=== PATIENT | female | born 1950 | race Hispanic/Latino ===

== ENCOUNTER → 2017-09-06 | Outpatient (CLI) | payer MEDICARE | END | disposition home or self-care (01) | LOC: SHCH 11:07 | PROVIDERS: ATTEND Internal Medicine Cardiovascular Disease | DX: I25.10 Atherosclerotic heart disease of native coronary artery without angina pectoris (principal) | CPT/HCPCS: 93306 ==

== ENCOUNTER → 2017-09-21 | Outpatient (CLI) | payer MEDICARE | END | disposition home or self-care (01) | LOC: SHCH 09:02 | PROVIDERS: ATTEND Internal Medicine Cardiovascular Disease | DX: I73.9 Peripheral vascular disease, unspecified (principal) | CPT/HCPCS: 93925 ==

== ENCOUNTER 2019-07-16 16:32 | Inpatient (IN) | payer MEDICARE ==
[~2019-07-16] VITALS: Ht 157.5 cm; Wt 72.8 kg
[2019-07-16 16:46] LABS: ABG BASE EXCESS -13.6 mmol/L (-2.0-3.0); ABG HCO3 16.8 mmol/L (21.0-28.0); ABG OXYGEN SATURATION 83.3 % (95.0-99.0); ABG PCO2 58 mmHg (32-45)
[2019-07-16] MEDS ORDERED: NITROGLYCERIN 1GM/1 INCH PACKET TD ONE (16:48)
[2019-07-16 17:11] LABS: CREATININE 1.7 mg/dL (0.5-1.5); POTASSIUM 3.8 mmol/L (3.5-5.1)
[2019-07-16 17:12] LABS: INR 0.88 (0.85-1.15); PARTIAL THROMBOPLASTIN TIME 28.9 SEC (26.3-35.5); PROTHROMBIN TIME 9.5 SEC (9.6-11.6)
[2019-07-16 17:15] LABS: ALBUMIN 3.2 g/dL (3.5-5.0); BASOPHILS % (AUTO) 0.3 % (0.0-5.0); BILIRUBIN,TOTAL 0.6 mg/dL (0.2-1.0); LYMPHOCYTES % (AUTO) 40.1 % (21.0-51.0); MEAN CORPUSCULAR HEMOGLOBIN 29.4 pg (27.0-33.0); MEAN CORPUSCULAR HGB CONC 31.4 g/dL (32.0-36.0); MEAN CORPUSCULAR VOLUME 93.5 fL (79-99); MONOCYTES % (AUTO) 4.3 % (3.0-13.0); NEUTROPHILS % (AUTO) 51.7 % (40.0-77.0); NUCLEATED RED BLOOD CELLS 0.2 % (0.0-0.19); PLATELET COUNT (AUTO) 381 K/uL (130-400); RED BLOOD CELL COUNT(AUTO) 3.85 MIL/uL (4.00-5.50); RED CELL DISTRIBUTION WIDTH 15.4 % (11.0-15.5); TOTAL PROTEIN, SERUM 7.6 g/dL (6.0-8.3); WHITE BLOOD COUNT (AUTO) 17.9 K/uL (4.8-10.8)
[2019-07-16] MEDS ORDERED: ASPIRIN 325 MG TABLET ONE (17:26)
[2019-07-16 17:32] LABS: APPEARANCE,URINE SL CLOUDY (CLEAR); BILIRUBIN,URINE NEGATIVE (NEGATIVE); COLOR,URINE YELLOW (YELLOW); GLUCOSE, URINE (UA) 250 mg/dL (NEGATIVE); KETONES,URINE NEGATIVE (NEGATIVE); LEUKOCYTE ESTERASE ,URINE NEGATIVE (NEGATIVE); NITRATE,URINE NEGATIVE (NEGATIVE); OCCULT BLOOD,URINE SMALL (NEGATIVE); PROTEIN,URINE >=300 mg/dL (NEGATIVE); UROBILINOGEN,URINE 0.2 mg/dL (0.2-1.0)
[2019-07-16 17:42] LABS: BACTERIA,URINE Moderate /HPF (None Seen); MUCUS,URINE Few LPF (None Seen); SQUAMOUS EPITHELIAL CELL,UR Few /HPF (0-2)
[2019-07-16 17:43] LABS: AMORPHOUS SEDIMENT,UR Moderate /LPF (None Seen)
[2019-07-16 17:55] LABS: B-TYPE NATRIURETIC PEPTIDE 1050 pg/mL (0-100)
[2019-07-16] MEDS ORDERED: LEVOFLOXACIN 750 MG/D5W 150 ML 150 ML ONE (18:06)
[2019-07-16] MEDS ORDERED: ACETAMINOPHEN 325 MG TAB PO PRN ×2 (19:00)
[2019-07-16] MEDS: FUROSEMIDE 10 MG/ML 2ML VIAL IV SCH (19:00)
[2019-07-16] MEDS ORDERED: AZITHROMYCIN 500MG+NS 250ML 250 ML IV SCH (19:00)
[2019-07-16] MEDS ORDERED: MORPHINE SULFATE 2 MG/ML 1ML SYG IV PRN (19:00)
[2019-07-16] MEDS ORDERED: ONDANSETRON HCL 4 MG/2 ML VIAL IV PRN (19:00)
[2019-07-16] MEDS ORDERED: HYDRALAZINE HCL 20 MG/ML VIAL IV PRN (19:00)
[2019-07-16] MEDS ORDERED: CEFTRIAXONE SODIUM 1 GM IV SCH (19:00)
[2019-07-16 19:30] LABS: ABG BASE EXCESS -1.3 mmol/L (-2.0-3.0); ABG HCO3 24.6 mmol/L (21.0-28.0); ABG PCO2 46 mmHg (32-45)
[2019-07-16] MEDS ORDERED: AZITHROMYCIN 500MG+NS 250ML 250 ML IV ONE (20:01)
[2019-07-16] MEDS ORDERED: CEFTRIAXONE SODIUM 1 GM ONE (20:02)
[2019-07-16 20:05] LABS: CHOLESTEROL 215 mg/dL (<200); HDL CHOLESTEROL 44 mg/dL (35-85); HEMOGLOBIN A1C 9.3 % (4.0-6.0); LDL DIRECT 134 mg/dL (0-99); TRIGLYCERIDES 331 mg/dL (30-200)
[2019-07-16] MEDS: FAMOTIDINE 20MG TAB 20 MG TAB PO SCH (21:00)
[2019-07-16] MEDS: INSULIN HUMULIN R 100 UNIT/ML 3ML SQ SCH (21:00)
[2019-07-16] MEDS: ATORVASTATIN CALCIUM 20 MG TABLET PO SCH (21:00)
[2019-07-16] MEDS ORDERED: METOPROLOL TARTRATE 25 MG TAB PO SCH (21:00)
[2019-07-16] MEDS ORDERED: ATORVASTATIN CALCIUM 20 MG TABLET ONE (21:39)
[2019-07-16] MEDS ORDERED: FAMOTIDINE/PF 20 MG/2 ML VIAL IV ONE (21:40)
[2019-07-16] MEDS ORDERED: INSULIN HUMULIN R 100 UNIT/ML 3ML ONE (21:41)
[2019-07-17] MEDS: IPRATROPIUM/ALBUTEROL SULFATE 3 ML SOLUTION IH SCH ×5 (00:18→23:20)
[2019-07-17] MEDS ORDERED: SODIUM CHLORIDE 3% FOR INHALATION 4 ML/AMP VIAL.NEB IH ONE ×2 (00:21→06:30)
[2019-07-17] MEDS ORDERED: FUROSEMIDE 10 MG/ML 2ML VIAL ONE ×2 (06:03→08:15)
[2019-07-17] MEDS ORDERED: IPRATROPIUM/ALBUTEROL SULFATE 3 ML SOLUTION IH ONE ×2 (06:20→12:12)
[2019-07-17] MEDS: FUROSEMIDE 10 MG/ML 2ML VIAL IV SCH (07:00)
[2019-07-17 07:04] LABS: BASOPHILS % (AUTO) 0.2 % (0.0-5.0); EOSINOPHILS % (AUTO) 1.3 % (0.0-8.0); HEMATOCRIT 30.4 % (36-48); LYMPHOCYTES % (AUTO) 18.5 % (21.0-51.0); MEAN CORPUSCULAR HEMOGLOBIN 29.2 pg (27.0-33.0); MEAN CORPUSCULAR HGB CONC 32.9 g/dL (32.0-36.0); MEAN CORPUSCULAR VOLUME 88.9 fL (79-99); MONOCYTES % (AUTO) 6.3 % (3.0-13.0); PLATELET COUNT (AUTO) 292 K/uL (130-400); RED BLOOD CELL COUNT(AUTO) 3.42 MIL/uL (4.00-5.50); RED CELL DISTRIBUTION WIDTH 15.4 % (11.0-15.5); WHITE BLOOD COUNT (AUTO) 12.3 K/uL (4.8-10.8)
[2019-07-17 07:14] LABS: CREATININE 1.2 mg/dL (0.5-1.5); POTASSIUM 4.1 mmol/L (3.5-5.1)
[2019-07-17 07:30] LABS: B-TYPE NATRIURETIC PEPTIDE 1020 pg/mL (0-100)
[2019-07-17] MEDS ORDERED: HEPARIN SODIUM 5000UNIT/ML 1ML VIAL SQ PRN (07:30)
[2019-07-17] MEDS: INSULIN HUMULIN R 100 UNIT/ML 3ML SQ SCH ×4 (07:30→22:18)
[2019-07-17] MEDS: NITROGLYCERIN 1GM/1 INCH PACKET TD SCH ×3 (07:30→23:30)
[2019-07-17] MEDS ORDERED: ENOXAPARIN SODIUM 40 MG/0.4 ML SYRINGE SQ ONE (07:41)
[2019-07-17] MEDS ORDERED: NITROGLYCERIN 1GM/1 INCH PACKET TD ONE ×2 (07:42→16:56)
[2019-07-17] MEDS ORDERED: HEPARIN 25000 UNITS/250 ML D5W 250 ML IV ONE (07:50)
[2019-07-17] MEDS ORDERED: HEPARIN SODIUM 5000UNIT/ML 1ML VIAL ONE (08:05)
[2019-07-17] MEDS ORDERED: FAMOTIDINE/PF 20 MG/2 ML VIAL IV ONE (08:16)
[2019-07-17] MEDS ORDERED: ONDANSETRON HCL 4 MG/2 ML VIAL ONE (08:16)
[2019-07-17] MEDS ORDERED: MORPHINE SULFATE 2 MG/ML 1ML SYG ONE (08:16)
[2019-07-17] MEDS: LABETALOL HCL 200 MG TABLET PO SCH ×2 (09:00→22:03)
[2019-07-17] MEDS: LISINOPRIL 20 MG TABLET PO SCH (09:00)
[2019-07-17] MEDS ORDERED: ENOXAPARIN SODIUM 40 MG/0.4 ML SYRINGE SQ SCH (09:00)
[2019-07-17] MEDS: AMLODIPINE BESYLATE 5 MG TAB PO SCH (09:00)
[2019-07-17] MEDS: ASPIRIN 325 MG TABLET PO SCH (09:00)
[2019-07-17] MEDS ORDERED: METOPROLOL TARTRATE 25 MG TAB ONE (09:54)
[2019-07-17] MEDS ORDERED: AMLODIPINE BESYLATE 5 MG TAB ONE (09:54)
[2019-07-17] MEDS ORDERED: LABETALOL HCL 200 MG TABLET ONE (09:54)
[2019-07-17 12:17] LABS: INR 1.05 (0.85-1.15); PROTHROMBIN TIME 11.3 SEC (9.6-11.6)
[2019-07-17 12:24] LABS: PARTIAL THROMBOPLASTIN TIME 115.7 SEC (26.3-35.5)
--- NOTE | 2019-07-17 14:29 | NUR ---
INITIAL SW met with patient. She stated that she lives with daughter, Eli Garcia, [phone]. No home services at this time. DME: [facility] yuen, glucometer (uses insulin). Patient reports she needs help with ADL's and does not drive. Family helps her with transportation to MD appts. PCP is Dr. Kirsten Nicholson. Pharmacy is [facility] in [place]. DCP is home. Addendum: 07/17/19 at 1432 by HARRIETT MALIK SS Amended: Links added.
[2019-07-17 14:51] LABS: INR 1.03 (0.85-1.15); PROTHROMBIN TIME 11.1 SEC (9.6-11.6)
[2019-07-17 15:01] LABS: PARTIAL THROMBOPLASTIN TIME > 120.0 SEC (26.3-35.5)
[2019-07-17 17:10] VITALS: BP 159/52
--- NOTE | 2019-07-17 17:10 | NUR ---
ASSESSMENT RECEIVED PT FROM ER, AWAKE AND ALERT, NO SOB OR LABORED RESPIRATIONS, O2 PER NC, PT ON HEPARIN DRIP. ASSISTED TO BED WITH MINIMAL ASSISTANCE. ORIENTED TO ROOM AND CALL LIGHT, BED IN LOW POSITION, BED RAILS UP X 2. FAMILY AT BEDSIDE
[2019-07-17] MEDS ORDERED: LINA145C PO (17:54)
[2019-07-17] MEDS ORDERED: ATEN100T PO (17:54)
[2019-07-17] MEDS ORDERED: DAPA10TA PO (17:54)
[2019-07-17] MEDS ORDERED: FAMO20TA8 PO (17:54)
[2019-07-17] MEDS ORDERED: FURO20TA4 PO (17:54)
[2019-07-17] MEDS ORDERED: ESCI10TA54 PO (17:54)
[2019-07-17] MEDS ORDERED: GABA-529 PO (17:54)
[2019-07-17] MEDS ORDERED: HYDR10 PO (17:54)
[2019-07-17] MEDS ORDERED: BENZ200C53 PO (17:54)
[2019-07-17] MEDS ORDERED: ATOR40TA69 PO (17:54)
[2019-07-17] MEDS ORDERED: AMLO10TA4 PO (17:54)
[2019-07-17] MEDS ORDERED: CLON0.1T PO (17:54)
[2019-07-17] MEDS ORDERED: CLOP75TA32 PO (17:54)
[2019-07-17] MEDS ORDERED: ENAL20TA PO (17:54)
[2019-07-17 19:26] LABS: ABG BASE EXCESS 3.1 mmol/L (-2.0-3.0); ABG OXYGEN SATURATION 84.2 % (95.0-99.0); ABG PCO2 44 mmHg (32-45)
[2019-07-17 20:00] VITALS: BP 131/47
[2019-07-17] MEDS ORDERED: FUROSEMIDE 10 MG/ML 2ML VIAL IV SCH (21:00)
[2019-07-17] MEDS: FAMOTIDINE 20MG TAB 20 MG TAB PO SCH (21:00)
[2019-07-17] MEDS: CEFTRIAXONE SODIUM 1 GM IV SCH (22:01)
[2019-07-17] MEDS: ATORVASTATIN CALCIUM 20 MG TABLET PO SCH (22:03)
[2019-07-17] MEDS: AZITHROMYCIN 500MG+NS 250ML 250 ML IV SCH (22:04)
[2019-07-17 23:40] VITALS: BP 128/53
[2019-07-18 03:42] LABS: BASOPHILS % (AUTO) 0.2 % (0.0-5.0); EOSINOPHILS % (AUTO) 2.3 % (0.0-8.0); HEMATOCRIT 27.8 % (36-48); LYMPHOCYTES % (AUTO) 14.5 % (21.0-51.0); MEAN CORPUSCULAR HEMOGLOBIN 28.9 pg (27.0-33.0); MEAN CORPUSCULAR HGB CONC 32.7 g/dL (32.0-36.0); MEAN CORPUSCULAR VOLUME 88.3 fL (79-99); MONOCYTES % (AUTO) 7.2 % (3.0-13.0); NEUTROPHILS % (AUTO) 75.3 % (40.0-77.0); PLATELET COUNT (AUTO) 329 K/uL (130-400); RED BLOOD CELL COUNT(AUTO) 3.15 MIL/uL (4.00-5.50); RED CELL DISTRIBUTION WIDTH 15.5 % (11.0-15.5); WHITE BLOOD COUNT (AUTO) 9.9 K/uL (4.8-10.8)
[2019-07-18 03:44] LABS: CREATININE 1.2 mg/dL (0.5-1.5); POTASSIUM 3.6 mmol/L (3.5-5.1)
[2019-07-18 03:54] LABS: ABG BASE EXCESS 5.2 mmol/L (-2.0-3.0); ABG HCO3 29.5 mmol/L (21.0-28.0); ABG OXYGEN SATURATION 99.2 % (95.0-99.0); ABG PCO2 42 mmHg (32-45)
[2019-07-18 04:16] VITALS: BP 131/56
[2019-07-18 04:33] LABS: B-TYPE NATRIURETIC PEPTIDE 653 pg/mL (0-100)
[2019-07-18] MEDS ORDERED: HEPARIN 25000 UNITS/250 ML D5W 250 ML IV ONE (05:10)
[2019-07-18] MEDS: INSULIN HUMULIN R 100 UNIT/ML 3ML SQ SCH ×4 (06:29→22:01)
[2019-07-18] MEDS: NITROGLYCERIN 1GM/1 INCH PACKET TD SCH (06:31)
[2019-07-18] MEDS: IPRATROPIUM/ALBUTEROL SULFATE 3 ML SOLUTION IH SCH ×4 (06:42→23:59)
[2019-07-18 07:00] VITALS: BP 153/58
[2019-07-18] MEDS: ASPIRIN 325 MG TABLET PO SCH (09:00)
[2019-07-18] MEDS ORDERED: ASPIRIN 81MG TAB.CHEW ONE (09:05)
[2019-07-18] MEDS: LISINOPRIL 20 MG TABLET PO SCH (09:10)
[2019-07-18] MEDS: FUROSEMIDE 40 MG TABLET PO SCH ×2 (09:11→17:49)
[2019-07-18] MEDS: LABETALOL HCL 200 MG TABLET PO SCH ×2 (09:11→20:52)
[2019-07-18 11:00] VITALS: BP 150/53
--- NOTE | 2019-07-18 12:00 | NUR ---
DESAT IN FLAT POSITION PT PLACED IN FLAT POSITION, ON HI FLOW O2 40%/30L AND DURING EXPLANATION OF HEART CATH PROCEDURE, PT O2 SATS DECREASED TO 88% AND PT DID FEEL UNCOMFORTABLE. PT REPOSITIONED TO HIGH SCHULZ'S POSITION AND SATS RETURNED TO 94%. FREDDIE SORIA NOTIFIED.
[2019-07-18] MEDS ORDERED: FUROSEMIDE 10 MG/ML 4ML VIAL IV SCH (13:15)
[2019-07-18] MEDS: AMLODIPINE BESYLATE 5 MG TAB PO SCH (13:18)
[2019-07-18] MEDS: ISOSORBIDE MONO 30MG TAB SR PO SCH (13:18)
[2019-07-18 15:00] VITALS: BP 148/56
[2019-07-18 19:33] VITALS: BP 154/65
[2019-07-18] MEDS: ATORVASTATIN CALCIUM 20 MG TABLET PO SCH (20:53)
[2019-07-18] MEDS: RANITIDINE HCL 15 MG/1 ML PO SCH (20:53)
[2019-07-18] MEDS: AZITHROMYCIN 500MG+NS 250ML 250 ML IV SCH (20:53)
[2019-07-18] MEDS: CEFTRIAXONE SODIUM 1 GM IV SCH (20:53)
[2019-07-18 23:48] VITALS: BP 144/59
[2019-07-19 03:43] VITALS: BP 149/63
[2019-07-19] MEDS: IPRATROPIUM/ALBUTEROL SULFATE 3 ML SOLUTION IH SCH ×3 (06:40→18:42)
[2019-07-19] MEDS: INSULIN HUMULIN R 100 UNIT/ML 3ML SQ SCH ×2 (07:30→12:56)
[2019-07-19 07:51] VITALS: BP 189/75
[2019-07-19] MEDS: ASPIRIN 325 MG TABLET PO SCH (09:11)
[2019-07-19] MEDS: AMLODIPINE BESYLATE 5 MG TAB PO SCH (09:11)
[2019-07-19] MEDS: ISOSORBIDE MONO 30MG TAB SR PO SCH (09:12)
[2019-07-19] MEDS: FUROSEMIDE 40 MG TABLET PO SCH ×2 (09:12→17:46)
[2019-07-19] MEDS: LABETALOL HCL 200 MG TABLET PO SCH ×2 (09:12→21:43)
[2019-07-19] MEDS: LISINOPRIL 20 MG TABLET PO SCH (09:14)
[2019-07-19 12:10] VITALS: BP 155/57
[2019-07-19] MEDS: ENOXAPARIN SODIUM 30 MG/0.3 ML SQ SCH (12:54)
[2019-07-19] MEDS ORDERED: HYDROCHLOROTHIAZIDE 25 MG TABLET PO SCH (13:45)
[2019-07-19 15:33] LABS: CREATININE 1.3 mg/dL (0.5-1.5); MAGNESIUM 2.1 mg/dL (1.80-2.40); PHOSPHORUS 3.9 mg/dL (2.5-4.9); POTASSIUM 4.3 mmol/L (3.5-5.1)
[2019-07-19 15:38] LABS: % IRON SATURATION 10.8 % (22-44)
[2019-07-19 15:53] LABS: BASOPHILS % (AUTO) 0.2 % (0.0-5.0); EOSINOPHILS % (AUTO) 4.9 % (0.0-8.0); HEMATOCRIT 27.6 % (36-48); LYMPHOCYTES % (AUTO) 18.6 % (21.0-51.0); MEAN CORPUSCULAR HEMOGLOBIN 29.6 pg (27.0-33.0); MEAN CORPUSCULAR VOLUME 89.9 fL (79-99); MONOCYTES % (AUTO) 6.1 % (3.0-13.0); NEUTROPHILS % (AUTO) 69.4 % (40.0-77.0); PLATELET COUNT (AUTO) 340 K/uL (130-400); RED BLOOD CELL COUNT(AUTO) 3.07 MIL/uL (4.00-5.50); RED CELL DISTRIBUTION WIDTH 15.3 % (11.0-15.5); WHITE BLOOD COUNT (AUTO) 8.7 K/uL (4.8-10.8)
[2019-07-19 16:30] VITALS: BP 169/56
[2019-07-19] MEDS: INSULIN LISPRO 100 UNIT/ML 3ML SQ SCH ×3 (17:47→21:49)
[2019-07-19 18:08] VITALS: BP 147/68
[2019-07-19 19:36] VITALS: BP 160/63
[2019-07-19] MEDS ORDERED: SODIUM CHLORIDE 0.9% 10 ML VIAL ONE (21:38)
[2019-07-19] MEDS: GABAPENTIN 100 MG CAPSULE PO SCH (21:43)
[2019-07-19] MEDS: ATORVASTATIN CALCIUM 20 MG TABLET PO SCH (21:44)
[2019-07-19] MEDS: CEFTRIAXONE SODIUM 1 GM IV SCH (21:44)
[2019-07-19] MEDS: AZITHROMYCIN 500MG+NS 250ML 250 ML IV SCH (21:44)
[2019-07-19] MEDS: RANITIDINE HCL 15 MG/1 ML PO SCH (21:47)
[2019-07-19] MEDS: INSULIN GLARGINE 100 UNITS/ML 10 ML VIAL SQ SCH (21:50)
[2019-07-20] VITALS (7 sets, daily range): BP systolic 136–159; BP diastolic 52–88
[2019-07-20] MEDS: IPRATROPIUM/ALBUTEROL SULFATE 3 ML SOLUTION IH SCH ×4 (00:27→17:57)
[2019-07-20] MEDS: INSULIN LISPRO 100 UNIT/ML 3ML SQ SCH ×7 (05:43→21:24)
[2019-07-20 05:44] LABS: % IRON SATURATION 16.1 % (22-44)
[2019-07-20] MEDS: ISOSORBIDE MONO 30MG TAB SR PO SCH (09:27)
[2019-07-20] MEDS: LISINOPRIL 20 MG TABLET PO SCH (09:28)
[2019-07-20] MEDS: FUROSEMIDE 40 MG TABLET PO SCH ×2 (09:28→16:59)
[2019-07-20] MEDS: LABETALOL HCL 200 MG TABLET PO SCH ×2 (09:28→21:23)
[2019-07-20] MEDS: CITALOPRAM 20 MG TABLET PO SCH (09:29)
[2019-07-20] MEDS: AMLODIPINE BESYLATE 5 MG TAB PO SCH (09:29)
[2019-07-20] MEDS: HYDROCHLOROTHIAZIDE 25 MG TABLET PO SCH (09:29)
[2019-07-20] MEDS: ENOXAPARIN SODIUM 30 MG/0.3 ML SQ SCH (09:35)
[2019-07-20] MEDS: ASPIRIN 81 MG EC TAB PO SCH (09:40)
[2019-07-20] MEDS: DOXYCYCLINE HYCLATE 100 MG TABLET PO SCH (21:23)
[2019-07-20] MEDS: RANITIDINE HCL 15 MG/1 ML PO SCH (21:23)
[2019-07-20] MEDS: ATORVASTATIN CALCIUM 20 MG TABLET PO SCH (21:23)
[2019-07-20] MEDS: GABAPENTIN 100 MG CAPSULE PO SCH (21:23)
[2019-07-20] MEDS: INSULIN GLARGINE 100 UNITS/ML 10 ML VIAL SQ SCH (21:25)
[2019-07-20] MEDS: LACTULOSE 20 GM/30 ML UDCUP PO PRN (21:31)
[2019-07-21] MEDS: IPRATROPIUM/ALBUTEROL SULFATE 3 ML SOLUTION IH SCH ×5 (00:37→23:27)
[2019-07-21 03:55] LABS: BASOPHILS % (AUTO) 0.4 % (0.0-5.0); EOSINOPHILS % (AUTO) 7.2 % (0.0-8.0); HEMATOCRIT 30.6 % (36-48); LYMPHOCYTES % (AUTO) 21.7 % (21.0-51.0); MEAN CORPUSCULAR HEMOGLOBIN 28.7 pg (27.0-33.0); MEAN CORPUSCULAR HGB CONC 32.4 g/dL (32.0-36.0); MEAN CORPUSCULAR VOLUME 88.7 fL (79-99); MONOCYTES % (AUTO) 6.4 % (3.0-13.0); NEUTROPHILS % (AUTO) 63.9 % (40.0-77.0); PLATELET COUNT (AUTO) 384 K/uL (130-400); RED BLOOD CELL COUNT(AUTO) 3.45 MIL/uL (4.00-5.50); RED CELL DISTRIBUTION WIDTH 14.7 % (11.0-15.5); WHITE BLOOD COUNT (AUTO) 8.1 K/uL (4.8-10.8)
[2019-07-21 04:00] VITALS: BP 149/57
[2019-07-21] MEDS: INSULIN LISPRO 100 UNIT/ML 3ML SQ SCH ×7 (06:14→21:59)
[2019-07-21 07:00] VITALS: BP 136/51
[2019-07-21] MEDS: CITALOPRAM 20 MG TABLET PO SCH (10:50)
[2019-07-21] MEDS: LABETALOL HCL 200 MG TABLET PO SCH ×2 (10:51→21:52)
[2019-07-21] MEDS: ISOSORBIDE MONO 30MG TAB SR PO SCH (10:51)
[2019-07-21] MEDS: LACTULOSE 20 GM/30 ML UDCUP PO PRN (10:51)
[2019-07-21] MEDS: ASPIRIN 81 MG EC TAB PO SCH (10:51)
[2019-07-21] MEDS: DOXYCYCLINE HYCLATE 100 MG TABLET PO SCH ×2 (10:51→21:52)
[2019-07-21] MEDS: LISINOPRIL 20 MG TABLET PO SCH (10:51)
[2019-07-21] MEDS: AMLODIPINE BESYLATE 5 MG TAB PO SCH (10:51)
[2019-07-21] MEDS: HYDROCHLOROTHIAZIDE 25 MG TABLET PO SCH (10:52)
[2019-07-21] MEDS: FUROSEMIDE 40 MG TABLET PO SCH ×2 (10:52→16:47)
[2019-07-21] MEDS: ENOXAPARIN SODIUM 30 MG/0.3 ML SQ SCH (10:52)
[2019-07-21 11:00] VITALS: BP 165/58
[2019-07-21 15:57] VITALS: BP 124/50
--- NOTE | 2019-07-21 18:50 | NUR ---
PATIENT WAS SEEN BY DR. Gillespie, DR. KERR, AND DR. HARRY TODAY. CARDIO EVALUATED PATIENT'S TOLERANCE TO LAYING FLAT. PER MD, PATIENT MIGHT BE READY FOR HEART CATH TOMORROW DEPENDING ON DR. FERREIRA'S RECOMMENDATIONS. JONES CATHETER WAS REMOVED TODAY AND PATIENT ALREADY VOIDED. PATIENT REMAINS ON DROPLET ISOLATION FOR CAP.
--- NOTE | 2019-07-21 19:14 | NUR ---
SBAR REPORT HANDED TO LAUREN LAINEZ.
[2019-07-21 19:29] VITALS: BP 158/62
[2019-07-21] MEDS: GABAPENTIN 100 MG CAPSULE PO SCH (21:51)
[2019-07-21] MEDS: ATORVASTATIN CALCIUM 20 MG TABLET PO SCH (21:52)
[2019-07-21] MEDS: RANITIDINE HCL 15 MG/1 ML PO SCH (21:52)
[2019-07-21] MEDS: INSULIN GLARGINE 100 UNITS/ML 10 ML VIAL SQ SCH (22:24)
[2019-07-22] VITALS (15 sets, daily range): BP systolic 111–178; BP diastolic 41–75
[2019-07-22] MEDS: IPRATROPIUM/ALBUTEROL SULFATE 3 ML SOLUTION IH SCH ×4 (05:45→23:26)
[2019-07-22] MEDS: INSULIN LISPRO 100 UNIT/ML 3ML SQ SCH ×7 (06:22→21:00)
[2019-07-22 06:47] LABS: INR 0.94 (0.85-1.15); PROTHROMBIN TIME 10.2 SEC (9.6-11.6)
[2019-07-22 07:52] LABS: CREATININE 1.3 mg/dL (0.5-1.5); POTASSIUM 3.7 mmol/L (3.5-5.1)
[2019-07-22] MEDS: HYDROCHLOROTHIAZIDE 25 MG TABLET PO SCH (08:41)
[2019-07-22] MEDS: FUROSEMIDE 40 MG TABLET PO SCH (08:41)
[2019-07-22] MEDS: AMLODIPINE BESYLATE 5 MG TAB PO SCH (08:41)
[2019-07-22] MEDS: ISOSORBIDE MONO 30MG TAB SR PO SCH (08:42)
[2019-07-22] MEDS: LISINOPRIL 20 MG TABLET PO SCH (08:42)
[2019-07-22] MEDS: LABETALOL HCL 200 MG TABLET PO SCH ×2 (08:42→21:33)
[2019-07-22] MEDS: ENOXAPARIN SODIUM 30 MG/0.3 ML SQ SCH (09:00)
[2019-07-22] MEDS ORDERED: HEPARIN SODIUM 1000UNIT/ML 10ML VIAL ONE (10:48)
[2019-07-22] MEDS ORDERED: NITROGLYCERIN 2 MG/VIAL VIAL IV ONE (10:49)
[2019-07-22] MEDS ORDERED: IOHEXOL 350 MG/ML 100ML INFUS..BTL IV ONE (10:49)
[2019-07-22] MEDS ORDERED: LIDOCAINE HCL 2% 20ML ONE (10:49)
[2019-07-22] MEDS ORDERED: IOHEXOL-350 50ML VIAL IV ONE (10:49)
[2019-07-22] MEDS ORDERED: MIDAZOLAM HCL 1 MG/ML 2ML VIAL ONE (11:32)
[2019-07-22] MEDS ORDERED: GLUCAGON 1MG KIT 1 MG ML IM PRN (12:15)
[2019-07-22] MEDS ORDERED: DEXTROSE 50%-WATER 50 ML DISP.SYRIN IV PRN (12:15)
--- NOTE | 2019-07-22 13:33 | NUR ---
RD NOTIFICATION RD CONSULTS DUE TO LOS X 6. DIET: HEART HEALTHY AND 1500ML/D FLUID RESTRICTION. PO INTAKE 0% AND HAS POOR APPETITE. PT SLEEPING AT TIME OF VISIT AND MISSED HER LUNCH MEAL. ALTERED NUTRITION RELATED LABS REVIEWED (A1C 9.3, BNP 1050, TG 331, CHOL 215, LDL 134). MEDS REVIEWED. PT SLEEPING AT VISIT SO RD LEFT NUTRITION EDUCATION HANDOUTS ON TABLE IN [place]- RD WILL FOLLOW UP AT A DIFFERENT TIME FOR REVIEW OF HANDOUTS. RD RECOMMENDS TO CHANGE FLUID RESTRICTION TO 1200ML/D OFFER GLUCERNA BID DUE TO POOR PO MONITOR FLUIDS INTAKE AND PO INTAKE DAILY RD PENDING NUTRITION EDUCATION AT THIS TIME RD WILL CONTINUE TO MONITOR AND FOLLOW UP, THANK YOU. Addendum: 07/22/19 at [address] Amended: Links added.
[2019-07-22] MEDS: DOXYCYCLINE HYCLATE 100 MG TABLET PO SCH ×2 (15:59→21:33)
[2019-07-22] MEDS: CITALOPRAM 20 MG TABLET PO SCH (15:59)
[2019-07-22] MEDS: ASPIRIN 81 MG EC TAB PO SCH (16:00)
--- NOTE | 2019-07-22 17:26 | NUR ---
[id number] patient signed IM Letter, I faxed IM Letter to [phone] and placed in chart under consent tab
[2019-07-22] MEDS ORDERED: METOPROLOL TARTRATE 25 MG TAB PO SCH (21:00)
[2019-07-22] MEDS: ATORVASTATIN CALCIUM 20 MG TABLET PO SCH (21:33)
[2019-07-22] MEDS: RANITIDINE HCL 15 MG/1 ML PO SCH (21:34)
[2019-07-22] MEDS: GABAPENTIN 100 MG CAPSULE PO SCH (21:34)
[2019-07-22] MEDS: INSULIN GLARGINE 100 UNITS/ML 10 ML VIAL SQ SCH (23:23)
[2019-07-23 03:48] VITALS: BP 130/54
[2019-07-23 04:32] LABS: CREATININE 1.5 mg/dL (0.5-1.5); POTASSIUM 3.6 mmol/L (3.5-5.1)
[2019-07-23] MEDS: INSULIN LISPRO 100 UNIT/ML 3ML SQ SCH ×6 (05:45→16:45)
[2019-07-23 07:31] VITALS: BP 172/77
[2019-07-23] MEDS: IPRATROPIUM/ALBUTEROL SULFATE 3 ML SOLUTION IH SCH ×2 (07:36→10:31)
[2019-07-23] MEDS ORDERED: AMLODIPINE BESYLATE 5 MG TAB PO SCH (09:00)
[2019-07-23] MEDS: LABETALOL HCL 200 MG TABLET PO SCH (10:19)
[2019-07-23] MEDS: DOXYCYCLINE HYCLATE 100 MG TABLET PO SCH (10:19)
[2019-07-23] MEDS: HYDROCHLOROTHIAZIDE 25 MG TABLET PO SCH (10:19)
[2019-07-23] MEDS: ASPIRIN 81 MG EC TAB PO SCH (10:19)
[2019-07-23] MEDS: CITALOPRAM 20 MG TABLET PO SCH (10:19)
[2019-07-23] MEDS: LISINOPRIL 20 MG TABLET PO SCH (10:19)
[2019-07-23] MEDS: ISOSORBIDE MONO 30MG TAB SR PO SCH (10:20)
[2019-07-23] MEDS: ENOXAPARIN SODIUM 30 MG/0.3 ML SQ SCH (10:20)
[2019-07-23 11:38] VITALS: BP 164/62
--- NOTE | 2019-07-23 14:10 | NUR ---
DR. GUERRERO IS MAKING HIS ROUNDS AT THIS TIME.
[2019-07-23] MEDS ORDERED: IPRATROPIUM/ALBUTEROL SULFATE 3 ML SOLUTION IH PRN (14:15)
[2019-07-23 15:51] VITALS: BP 105/42
--- NOTE | 2019-07-23 16:24 | NUR ---
FAHEEM REPORT HANDED TO MOHAN LAINEZ. PATIENT WAS SAFELY TRANSPORTED VIA WHEELCHAIR BY PAWAN GARCIA. ALL BELONGINGS WERE PACKED. Addendum: 07/23/19 at 1625 by SEBASTIÁN WHALEN RN RN WRONG PATIENT
[2019-07-23] MEDS ORDERED: LISI-613 PO (16:58)
[2019-07-23] MEDS ORDERED: DOXY100T2 PO (16:58)
[2019-07-23] MEDS ORDERED: Isosorbide Mono 30MG Tab Sr PO (16:58)
== END 2019-07-23 18:30 | disposition home or self-care (01) | DRG 280 ==
LOC: EDH 16:32 → EDHIP 18:53 → 2DH 07-17 17:34
PROVIDERS: ADMIT Internal Medicine; ATTEND Internal Medicine
PROC: 5A09357 Assistance with Respiratory Ventilation, Less than 24 Consecutive Hours, Continuous Positive Airway Pressure (ICD-10-PCS; 2019-07-16)
PROC: 5A09357 Assistance with Respiratory Ventilation, Less than 24 Consecutive Hours, Continuous Positive Airway Pressure (ICD-10-PCS; 2019-07-17)
PROC: 5A09357 Assistance with Respiratory Ventilation, Less than 24 Consecutive Hours, Continuous Positive Airway Pressure (ICD-10-PCS; 2019-07-18)
PROC: 5A09357 Assistance with Respiratory Ventilation, Less than 24 Consecutive Hours, Continuous Positive Airway Pressure (ICD-10-PCS; 2019-07-19)
PROC: 5A09357 Assistance with Respiratory Ventilation, Less than 24 Consecutive Hours, Continuous Positive Airway Pressure (ICD-10-PCS; 2019-07-21)
PROC: 4A023N7 Measurement of Cardiac Sampling and Pressure, Left Heart, Percutaneous Approach (ICD-10-PCS; principal; 2019-07-22)
PROC: B2111ZZ Fluoroscopy of Multiple Coronary Arteries using Low Osmolar Contrast (ICD-10-PCS; 2019-07-22)
PROC: B2151ZZ Fluoroscopy of Left Heart using Low Osmolar Contrast (ICD-10-PCS; 2019-07-22)
DX: I21.4 Non-ST elevation (NSTEMI) myocardial infarction (principal); J18.9 Pneumonia, unspecified organism; J96.01 Acute respiratory failure with hypoxia; J96.02 Acute respiratory failure with hypercapnia; I50.31 Acute diastolic (congestive) heart failure; I13.0 Hypertensive heart and chronic kidney disease with heart failure and stage 1 through stage 4 chronic kidney disease, or unspecified chronic kidney disease; N17.9 Acute kidney failure, unspecified; E44.1 Mild protein-calorie malnutrition; I69.354 Hemiplegia and hemiparesis following cerebral infarction affecting left non-dominant side; D64.9 Anemia, unspecified; N18.3 Chronic kidney disease, stage 3 (moderate); E11.22 Type 2 diabetes mellitus with diabetic chronic kidney disease; E11.51 Type 2 diabetes mellitus with diabetic peripheral angiopathy without gangrene; E11.65 Type 2 diabetes mellitus with hyperglycemia; E78.5 Hyperlipidemia, unspecified; I25.10 Atherosclerotic heart disease of native coronary artery without angina pectoris; K21.9 Gastro-esophageal reflux disease without esophagitis; I08.1 Rheumatic disorders of both mitral and tricuspid valves; I45.10 Unspecified right bundle-branch block; Z79.899 Other long term (current) drug therapy; Z68.29 Body mass index [BMI] 29.0-29.9, adult
CPT/HCPCS: 36415; 36600; 71045; 80048; 80053; 80061; 81001; 82435; 82550; 82803; 82947; 82948; 83036; 83540; 83550; 83605; 83735; 83880; 84100; 84132; 84145; 84295; 84443; 84484; 85018; 85025; 85610; 85730; 87040; 87486; 87581; 87633; 87798; 87804; 93005; 93306; 93458; 94640; 94660; 94664; 97039; 99156; 99157; 99291; C1760; C1769; C1894; G0378; J0360; J0456; J0696; J1644; J1650; J1815; J1940; J1956; J2250; J2405; J3490; Q9967